=== PATIENT | female | born 2000 | race Caucasian/White ===

== ENCOUNTER 2021-11-24 11:41 | Emergency (ER) | payer BC ==
[2021-11-24 12:40] LABS: HEMOGLOBIN 13.8 gm/dl (12.3-15.3); RED BLOOD COUNT 4.77 M/UL (4.00-5.10)
[2021-11-24 13:02] LABS: BUN/CREATININE RATIO 9 (0-10)
[2021-11-24] MEDS ORDERED: MACROBID 100 M100 MG PO (13:17)
== END 2021-11-24 13:41 | disposition home or self-care (01) ==
LOC: ER1 11:41
PROVIDERS: Physician Assistant
DX: O99.891 Other specified diseases and conditions complicating pregnancy (principal); R55 Syncope and collapse; O23.40 Unspecified infection of urinary tract in pregnancy, unspecified trimester; N39.0 Urinary tract infection, site not specified
CPT/HCPCS: 80053; 81001; 82550; 82553; 84484; 84702; 85025; 87086; 93005; 99284

== ENCOUNTER 2021-12-03 10:01 | Emergency (ER) | payer BC ==
[~2021-12-03 10:01] MED LIST: MACROBID 100 M100 MG PO
[2021-12-03 11:01] LABS: HEMOGLOBIN 14.3 gm/dl (12.3-15.3); RED BLOOD COUNT 4.96 M/UL (4.00-5.10); WHITE BLOOD COUNT 7.6 K/UL (4.5-11.0)
[2021-12-03 11:28] LABS: BUN/CREATININE RATIO 8 (0-10)
[2021-12-03] MEDS ORDERED: MACROBID 100 M100 MG PO (11:45)
== END 2021-12-03 12:00 | disposition home or self-care (01) ==
LOC: ER1 10:01
PROVIDERS: Physician Assistant
DX: O20.0 Threatened abortion (principal); O23.41 Unspecified infection of urinary tract in pregnancy, first trimester; N39.0 Urinary tract infection, site not specified; Z3A.01 Less than 8 weeks gestation of pregnancy
CPT/HCPCS: 80053; 81001; 84702; 84703; 85025; 86900; 86901; 87086; 99284